=== PATIENT | female | born 1980 | race Caucasian/White ===

== ENCOUNTER 2018-05-09 11:58 | Emergency (ER) | payer SELFPAY ==
[~2018-05-09 11:58] MED LIST: ISOVUE-370 76%-LOCM 1 ML ONE
[2018-05-09 15:02] LABS: Hemoglobin 9.2 g/dL (12.0-16.0); Mean Corpuscular HGB CONC 30.7 g/dL (32.0-36.0); Mean Corpuscular Hemoglobin 22.4 pg (27.0-31.0); Mean Corpuscular Volume 72.9 fL (78.0-98.0); Mean Platelet Volume 9.5 fL (7.4-10.4); Platelet Count 285 thou/uL (130-400); RBC Distribution Width 17.8 % (11.5-14.5); Red Blood Cell (RBC) Count 4.13 mill/uL (4.20-5.40); White Blood Cell (WBC) Count 4.9 thou/uL (4.8-10.8)
[2018-05-09 15:19] LABS: #Basophils 0.1 thou/uL (0.0-0.2); #Eosinphils 0.1 thou/uL (0.0-0.7); #Lymphocytes 1.7 thou/uL (1.20-3.40); #Monocytes 0.3 thou/uL (0.11-0.59); #Neutrophils 2.7 thou/uL (1.40-6.50); %Basophils 1.2 % (0.0-1.0); %Eosinophils 1.8 % (0.0-10.0); %Lymphocytes 35.1 % (21.0-51.0); %Monocytes 6.2 % (0.0-10.0); %Neutrophils 55.7 % (42.0-75.0); Anisocytosis SLIGHT = 6-15 cells (100X) (0-5/hpf); Hypochromia SLIGHT = 6-15 cells (100X) (0-5/hpf); MDiff Complete? YES; Microcytosis SLIGHT = 6-15 cells (100X) (0-5/hpf); Ovalocytes SLIGHT = 2-5 cells (100X) (0-1/hpf); PLT Morphology Comment Appears Adequate
[2018-05-09 15:22] LABS: ALT (SGPT) Less than 7 U/L (8-55); AST (SGOT) 12 U/L (5-34); Alkaline Phosphatase 67 U/L (40-150); Anion Gap 9 mmol/L (10-20); BUN (Urea Nitrogen) 15 mg/dL (7.0-18.7); Bilirubin, Total 0.3 mg/dL (0.2-1.2); Calc. Creatinine Clearance 0 mL/min (70-130); Calcium 9.3 mg/dL (7.8-10.44); Carbon Dioxide 24 mmol/L (22-29); Chloride 110 mmol/L (98-107); Estimated GFR-MDRD 88; Globulin 2.9 g/dL (2.4-3.5); Glucose 82 mg/dL (70-105); Potassium 4.4 mmol/L (3.5-5.1); Protein, Total 6.9 g/dL (6.0-8.3); Sodium 139 mmol/L (136-145)
[2018-05-09] MEDS ORDERED: Morphine 4 MG/ML VIAL ONE (15:46)
[2018-05-09 15:51] LABS: BHCG - Serum Negative (NEGATIVE); Pregs Control Background? CLEAR/WHITE (CLR/WHITE); Pregs Control Bar Appear? YES (CONTROL BAR)
[2018-05-09 16:00] LABS: CK (CPK) 29 U/L (29-168); Lipase 43 U/L (8-78)
[2018-05-09 16:03] LABS: Bilirubin Negative (Negative); Blood, Urine Large (Negative); Clarity CLEAR (Clear); Glucose, Urine (Dipstick) Negative (Negative); Leukocyte Moderate (Negative); Nitrite Negative (Negative); Protein, Urine (Dipstick) Negative (Neg-Trace); Specific Gravity, Urine 1.007 (1.002-1.036); Urobilinogen 0.2 mg/dL (0.2-1.0); pH, Urine 5.5 (5.0-9.0)
[2018-05-09 16:05] LABS: Bacteria/HPF 1+ HPF (None Seen); Hyaline Casts/LPF 0-3 HYALINE CAST LPF (0-3 Hyaline); Pathc Cast-AUWi Flag 0.72 (0-2.49); Pregnancy Test - Urine (BHCG) Negative (Negative); Pregu Control Background? CLEAR/WHITE (CLR/WHITE); Pregu Control Bar Appear? YES (CONTROL BAR); Specific Gravity 1.007 (1.002-1.036)
--- NOTE | 2018-05-09 16:40 | CT ---
CT ABDOMEN AND PELVIS WITH IV CONTRAST: 05/09/18 HISTORY: Abdominal pain. FINDINGS: The lung bases are clear. Gallbladder is surgically absent. Spleen, kidneys, adrenal glands, and panc reas are unremarkable. Appendix is not visualized. No evidence of bowel obstruction or inflammation. IMPRESSION: Status post cholecystectomy. No significant abnormalities are demonstrated. POS: [facility]
--- NOTE | 2018-05-13 10:53 | EKG ---
Test Reason : Blood Pressure : / mmHG Vent. Rate : 064 BPM Atrial Rate : 064 BPM P-R Int : 162 ms QRS Dur : 078 ms QT Int : 456 ms P-R-T Axes : 058 048 057 degrees QTc Int : 470 ms Normal sinus rhythm Normal ECG Confirmed by KYAW ANDRES, ANGELA ([id number]), research editor MUNDO CHAVARRIA ([id number]) on 05/13/2018 10:52:52 AM Referred By: Confirmed By:ANGELA CARD MD
== END 2018-05-09 17:09 | disposition home or self-care (01) ==
LOC: ERS 11:58
DX: N39.0 Urinary tract infection, site not specified (principal); D64.9 Anemia, unspecified
CPT/HCPCS: 36415; 74177; 80053; 81003; 81015; 81025; 82550; 83690; 84703; 85025; 87077; 87086; 93005; 96361; 96374; J2270

== ENCOUNTER 2018-06-14 01:35 | Emergency (ER) | payer SELFPAY ==
[2018-06-14] MEDS ORDERED: Clindamycin 150 MG CAP ONE (02:19)
[2018-06-14] MEDS ORDERED: Acetaminophen/Codeine 30-300mg Tablet ONE (02:19)
== END 2018-06-14 02:44 | disposition home or self-care (01) ==
LOC: ERS 01:35
DX: K02.9 Dental caries, unspecified (principal); Z79.899 Other long term (current) drug therapy
CPT/HCPCS: 99283

== ENCOUNTER 2019-03-20 22:10 | Emergency (ER) | payer SELFPAY ==
[2019-03-20] MEDS ORDERED: Dexamethasone 4 mg/ml Vial ONE ×2 (22:48)
== END 2019-03-20 23:30 | disposition home or self-care (01) ==
LOC: ERS 22:10
DX: J02.9 Acute pharyngitis, unspecified (principal); Z79.899 Other long term (current) drug therapy
CPT/HCPCS: 87081; 87430; 99283; J1100

== ENCOUNTER 2019-11-06 09:35 | Outpatient (CLI) | payer MEDICAID ==
--- NOTE | 2019-11-06 12:18 | ULT ---
TRANSABDOMINAL PELVIC ULTRASOUND: HISTORY: Enlarged uterus. COMPARISON: None. TECHNIQUE: Transabdominal imaging of the pelvis was performed. Ovaries were interrogated with roman scale, color flow, Doppler imaging, and spectral waveform analysis. FINDINGS: The uterus is identified measuring 5.3 x 9.7 x 6.3 cm. Mild heterogeneity throughout the myometrium without a focal discrete solid echotexture mass. Suboptimal evaluation of the endometrium. Proximal endometrial diameter is 1.1 cm. Anechoic focus in the left adnexa measuring 1.8 x 1.9 x 1.7 cm likely represents an ovarian follicle. Overall, the left ovary measures 2.5 x 3.3 x 2.6 cm. Anechoic focus in the right adnexa measures 2.3 x 2.1 x 2.0 cm. Dominant follicle is suspected. Ove rall, the right ovary measures 2.8 x 4.0 x 3.3 cm. There is no free fluid. OVARIAN DOPPLER: Vascular flow to both ovaries. IMPRESSION: 1. Bilateral ovarian follicles. 2. Suboptimal evaluation of the myometrial echotexture as well as the endometrium. Given the patien t's history, better interrogation with pelvic MRI is recommended. POS: [facility]
--- NOTE | 2019-11-06 12:21 | ULT ---
LEFT BREAST MAMMOGRAM: HISTORY: Palpable focus in the left breast. COMPARISON: None. TECHNIQUE: Targeted sonographic imaging of the left breast was performed in the region of concern. Static image s were reviewed. After reviewing static images, real-time imaging was performed in the presence of t radiologist. FINDINGS: Static and real-time images demonstrate incidental 0.3 cm cyst in the left breast, 3 o'clock position . There is a ridge of breast tissue that is palpated by the radiologist. Real-time imaging performe d by the radiologist demonstrates a ridge of breast parenchyma. No solid or cystic masses. No disto rtion or shadowing. The ridge of breast tissue is felt to correspond to the mammographic finding. IMPRESSION: BIRADS category 2 - benign finding. RECOMMENDATION: Annual mammogram. With regard to the palpable focus, further evaluation including additional imaging and/or biopsy can be based upon clinical finding and/or suspicion. POS: [facility]
--- NOTE | 2019-11-06 14:41 | MMO ---
Bilateral MAMMO Bilat Diag [facility]. CLINICAL HISTORY: Patient is 39 years old and is seen for diagnostic exam and lump or thickening in the left breast. The patient has no family history of breast cancer. The patient has no personal history of cancer. VIEWS: The views performed were: bilateral craniocaudal with tomosynthesis; bilateral mediolateral oblique with tomosynthesis; bilateral mediolateral with tomosynthesis; and left exaggerated craniocaudal. FILMS COMPARED: The present examination has been compared to a prior imaging study performed at [facility] on 11/06/2019. This study has been interpreted with the assistance of computer-aided detection. MAMMOGRAM FINDINGS: The breasts are heterogeneously dense, which could obscure a lesion on mammography. Right breast: There are no suspicious masses, calcifications or areas of architectural distortion. Left breast: No abnormality at palpable marker. There is asymmetric breast tissue. Left breast US is unremarkable. There are no suspicious masses, suspicious calcifications, or new areas of architectural distortion. IMPRESSION: THERE IS NO MAMMOGRAPHIC EVIDENCE OF MALIGNANCY. WITH REGARD TO THE PALPABLE AREA IN THE LEFT BREAST, FURTHER EVALUATION INCLUDING ADDITIONAL IMAGING AND/OR BIOPSY SHOULD BE BASED ON CLINICAL FINDINGS/SUSPICION. A ROUTINE FOLLOW-UP MAMMOGRAM IN 1 YEAR IS RECOMMENDED. THE RESULTS OF THIS EXAM WERE SENT TO THE PATIENT. ACR BI-RADS Category 2 - Benign finding MAMMOGRAPHY NOTE: 1. A negative mammogram report should not delay a biopsy if a dominant of clinically suspicious mass is present. 2. Approximately 10% to 15% of breast cancers are not detected by mammography. 3. Adenosis and dense breasts may obscure an underlying neoplasm. Reported by: DALLAS GUEVARA MD Electonically Signed: [id number]
== END 2019-11-06 09:36 | disposition home or self-care (01) ==
LOC: BICMAMMO 09:35
PROVIDERS: ATTEND Nurse Practitioner Family
DX: N63.21 Unspecified lump in the left breast, upper outer quadrant (principal); N83.8 Other noninflammatory disorders of ovary, fallopian tube and broad ligament; N85.2 Hypertrophy of uterus
CPT/HCPCS: 76856; 77066; 93976; G0279